=== PATIENT | female | born 1955 | race Caucasian/White ===

== ENCOUNTER 2019-12-10 08:18 | Outpatient (CLI) | payer MEDICARE, SELFPAY ==
--- NOTE | ~2019-12-10 | XR_ITS ---
EXAMINATION:XR_[id number]_CR DATE: 12/10/2019 08:45 INDICATION: Left-sided neck pain TECHNIQUE: AP, lateral, and odontoid views of the cervical spine are provided. COMPARISON: None FINDINGS: There is reversal of the normal cervical lordosis. There are 2 mm of retrolisthesis of C5 o n C6 and 2 mm of anterolisthesis of C7 on T1. The odontoid is intact. No fracture is identified. The vertebral body heights are normal. There is moderate loss of intervertebral disc space height at C5-6 and C6-7. There is moderate facet and uncovertebral joint osteoarthritis throughout the cervical spi ne. Small degenerative osteophytes project from the anterior endplates of multiple vertebral bodies. Prevertebral soft tissues are normal. IMPRESSION: 1. Moderate cervical spondylosis without acute findings. Reviewed, dictated and finalized at location A. OMER ACCOUNT TECHNICIAN
== END 2019-12-10 08:19 | disposition home or self-care (01) ==
PROVIDERS: PCP Internal Medicine; Visit Provider Internal Medicine
DX: M54.2 Cervicalgia (principal)
CPT/HCPCS: 72040

== ENCOUNTER 2019-12-18 08:21 | Outpatient (CLI) | payer MEDICARE, SELFPAY ==
--- NOTE | ~2019-12-18 | US_ITS ---
EXAMINATION: US right upper quadrant DATE: 12/18/2019 08:49 INDICATION: Abnormal liver function tests. TECHNIQUE: Multiple grayscale and Doppler ultrasound images of the abdomen were obtained. COMPARISON: None FINDINGS: The visualized portions of the head and body of the pancreas are normal. The liver demonstr ates diffuse steatosis. No liver surface nodularity. The gallbladder is normal in size. No gallstones or gallbladder wall thickening. There was no sonographic Martinez sign. The common duct is normal and measures 3 mm. There is a 3.2 cm cyst in right kidney. IMPRESSION: 1. Diffuse hepatic steatosis. Reviewed, dictated and finalized at location A. TER CUT OFF OPERATOR
== END 2019-12-18 08:22 | disposition home or self-care (01) ==
PROVIDERS: PCP Internal Medicine; Visit Provider Internal Medicine
DX: R94.5 Abnormal results of liver function studies (principal)
CPT/HCPCS: 76705

== ENCOUNTER 2021-12-19 08:25 | Outpatient (CLI) | payer MEDICARE, OTHER, SELFPAY ==
--- NOTE | ~2021-12-19 | MR_ITS ---
EXAMINATION: MR brain/brain stem wo con EXAM DATE: 12/19/2021 09:16 INDICATION: Cognitive impairment. TECHNIQUE: Magnetic resonance imaging (MRI) of the brain/brain stem obtained without contrast. Sagitt al T1, axial diffusion, gradient echo (T2*), T1, T2, FLAIR sequences obtained. There is no prior st udy for comparison. FINDINGS: Small left maxillary sinus mucous retention cysts or polyps. There are no areas of restrict ed diffusion to suggest acute infarction. There is no acute hemorrhage seen on the T2*, a hemosideri n sensitive sequence. No intraparenchymal brain mass. The ventricles are normal in size. There are no extra-axial collections. Flow voids are seen in the cerebral arteries on the T2-weighted sequence s consistent with their expected patency. The orbits are unremarkable. Soft tissue is unremarkable. IMPRESSION: Unremarkable brain MRI examination. Reviewed, dictated and finalized at location B. UCTION TEAM ADVISOR
== END 2021-12-19 08:26 | disposition home or self-care (01) ==
LOC: ANHIMG 08:35
PROVIDERS: PCP Internal Medicine; Visit Provider Internal Medicine
DX: G31.84 Mild cognitive impairment of uncertain or unknown etiology (principal)
CPT/HCPCS: 70551

== ENCOUNTER 2023-06-21 13:17 | Outpatient (CLI) | payer MEDICARE, OTHER, SELFPAY ==
--- NOTE | ~2023-06-21 | DEXA_ITS ---
Bone Density Report Name: BUDDY ZACARIAS Age: 68 Sex: Female Ethnicity: White Date of : 1955 Indication: postmenopausal; screening for osteoporosis; height loss; prior fracture; hysterectomy; Referring Provider: Benedicto Mathew Study: Bone densitometry was performed. Exam Date: June 21, 2023 Accession number: [id number] Bone Density: Region BMD T-score Z-score Classification AP Spine(L1, L2, L3) 1.270 2.3 4.3 Normal Femoral Neck (Left) 0.793 -0.5 1.2 Normal Total Hip (Left) 1.093 1.2 2.7 Normal Femoral Neck (Right) 0.735 -1.0 0.7 Normal Total Hip (Right) 0.983 0.3 1.8 Normal Femoral Neck Mean 0.764 -0.8 1.0 Normal Total Hip Mean 1.038 0.8 2.2 Normal World Health Organization criteria for BMD impression classify patients as: Normal (T-score at or above -1.0), Osteopenia (T-score between -1.0 and -2.5), or Osteoporosis (T-score at or below -2.5). 10-year Fracture Risk: FRAX not reported because: All T-scores for Spine Total, Hip Total, Femoral Neck at or above -1.0 Prior hip or vertebral fracture Clinical Information Provided by Patient: Have had a previous hip or vertebral fracture Has had a low trauma fracture Has the following medical conditions: Hysterectomy Patient maximum height was 64 Menopause Age: 27 No regular weight bearing exercise Does not regularly consume dairy products Drinks caffeinated beverages Onset of menses at age 12 Number of children 2 Impression: The patient has normal bone mass. The patient has risk factors, including: previous fracture. Discussion: INCREASED RISK OF FRACTURE DUE TO HISTORY OF FRACTURE. The patient's previous fracture puts the patient at high risk of a future fracture. In untreated patients, the risk of osteoporotic fracture increases approximately two-fold for each 1.0 SD decrease in T-score. Low bone density is not the only risk factor for fracture; also consider factors such as patient's age, frailty or poor health, risk of falling, risk of injury, previous osteoporotic fracture, family history of osteoporosis, cigarette smoking, low body weight, etc. Not everyone with a low trauma fracture has osteoporosis; osteomalacia and other metabolic bone disorders should also be considered. Patients who have osteoporosis should be evaluated for specific diseases and conditions (secondary causes) that may cause or contribute to bone loss and fracture risk. National Osteoporosis Foundation (NOF) recommends pharmacologic intervention for patients with a prior hip or vertebral fracture regardless of BMD T-score. The patient should follow a healthful lifestyle (good nutrition with adequate calcium and vitamin D, and appropriate weight-bearing exercise). Follow-Up: Consider a repeat BMD and Vertebral Fracture Assessment (VFA) exam in 2 years or sooner if medically necessary, to reassess this patient's status. Report
== END 2023-06-21 13:18 | disposition home or self-care (01) ==
LOC: CHSIMG 13:19
PROVIDERS: PCP Internal Medicine; Visit Provider Internal Medicine
DX: Z78.0 Asymptomatic menopausal state (principal)
CPT/HCPCS: 77080

== ENCOUNTER 2024-02-11 11:08 | Outpatient (CLI) | payer MEDICARE, OTHER, SELFPAY ==
--- NOTE | ~2024-02-11 | XR_ITS ---
XR hip BI wo pelvis 02/11/2024 11:38 Indication: Hip pain Procedure: 2 views each hip Comparison: No prior studies for comparison. Findings: There is mild bilateral symmetric osteoarthritis of the hips. No fracture, subluxation or d islocation. No soft tissue abnormality. No foreign bodies. Impression: 1: Mild bilateral osteoarthritis of the hips. Reviewed, dictated and finalized at location B. Impression: 1: Mild bilateral osteoarthritis of the hips.
--- NOTE | ~2024-02-11 | XR_ITS ---
XR lumbar spine 2-3V 02/11/2024 11:38 Indication: Low back pain. Procedure: 3 views lumbar spine Comparison: No prior studies for comparison. Findings: There is disc narrowing at all lumbar levels. There are prosthetic disc devices at L5-S1. T here is moderate facet hypertrophy at L3-4 through L5-S1. No fracture, subluxation or spondylolisthes is. There is mild dextroscoliosis. Impression: 1: Severe lumbar spondylosis. Reviewed, dictated and finalized at location B. Impression: 1: Severe lumbar spondylosis.
== END 2024-02-11 11:09 | disposition home or self-care (01) ==
LOC: CHSIMG 11:11
PROVIDERS: PCP Internal Medicine; Visit Provider Internal Medicine
DX: M25.551 Pain in right hip (principal); M16.0 Bilateral primary osteoarthritis of hip; M43.06 Spondylolysis, lumbar region
CPT/HCPCS: 72100; 73521

== ENCOUNTER 2024-02-18 13:29 | Outpatient (RCR) | payer MEDICARE, OTHER, SELFPAY ==
--- NOTE | 2024-02-18 13:43 | OPREHPOC ---
Outpatient Therapy Plan of Care This is a Multidisciplinary Plan of Care that may contain components documented by all disciplines (PT, OT, and ST.)
--- NOTE | 2024-02-18 14:46 | OPREHPOC ---
Outpatient Therapy Plan of Care This is a Multidisciplinary Plan of Care that may contain components documented by all disciplines (PT, OT, and ST.) PT Problem 1 PT Problem #1 Knowledge Deficit PT Goal 1 Goal patient to demonstrate independence with HEP Target Visit 5 PT Problem 2 PT Problem #2 Pain PT Goal 1 Goal 1. Patient to report highest pain at 2/10 2. patient to report ability to roll in bed with no increase in R low back pain Target Visit 10 PT Problem 3 PT Problem #3 Impaired Strength PT Goal 1 Goal 1. Patient to demonstrate 5/5 B LE strength to improve ability to stand for house hold tasks 2. Patient to demonstrate 4/5 core strength to improve ability to roll in bed without pain Target Visit 10 PT Problem 4 PT Problem #4 Impaired Functional Mobil PT Goal 1 Goal 1. patient to be able to ambulate >30 minutes to return to walking with her 2. patient to score 10% disability on Back Index Target Visit 10
--- NOTE | 2024-02-18 14:47 | PTOPEVAL1 ---
Assessment and note entered by Anastasia Salmeron DPT Evaluation Information Assessment Status Evaluation Diagnosis R sided low back pain, R hip pain Onset 02/13/24 Subjective Information patient reports R sided low back and posterior hip pain. she reports pain originally was going all the way down to the R foot but is now primarily in the back of the thigh to the knee. she reports at times she feels like her R leg is going to give out. she reports pain is worse with walking and standing as well as standing back up after bending over. she reports she bowls as well and pain is present at times with bowling. she reports occasionally when she rolls over in bed pain will occur. patient is semi-retired. Reported Pain Level Pain Score 4: Self Report Assessment PT Clinical Summary Mrs. Felipe is a 68 year old female who presents to PT with R sided low back pain with radiating pain to the R hip. Patient demonstrates decreased R hip>L hip strength, decreased LE flexibility and R anterior innominate rotation impairing her ability to go for walks with her , stand to complete house hold tasks and difficulty with rolling in bed. She would benefit from skilled PT to address impairments and return to PLOF. Plan of Care Interventions Electrical Stimulation,Gait Training,Hot Pack/Cold Pack,Manual Therapy,Mechanical Traction,Neuro Re- education,Patient/Caregiver Educati,Therapeutic Activities,Therapeutic Exercise PT Services Indicated Yes Treatment Frequency and 2x weekly for 10 visits Duration These treatments will address the objective and functional deficits as defined above. The patient will be advanced safely and appropriately in order for the patient to progress towards his/her prior level of function. Additional exercises will be introduced and as well as a comprehensive home exercise program upon discharge, if needed, ?to ensure carryover of functional gains achieved in the clinic. This treatment plan has been reviewed and agreement upon by the patient.
--- NOTE | 2024-03-21 10:01 | OPREHPOC ---
Outpatient Therapy Plan of Care This is a Multidisciplinary Plan of Care that may contain components documented by all disciplines (PT, OT, and ST.) PT Problem 1 PT Problem #1 Knowledge Deficit PT Goal 1 Goal patient to demonstrate independence with HEP Target Visit 5 Progress Met Comment continue to progress PT Problem 2 PT Problem #2 Pain PT Goal 1 Goal 1. Patient to report highest pain at 2/10 2. patient to report ability to roll in bed with no increase in R low back pain Target Visit 16 Progress Not Met PT Problem 3 PT Problem #3 Impaired Strength PT Goal 1 Goal 1. Patient to demonstrate 5/5 B LE strength to improve ability to stand for house hold tasks 2. Patient to demonstrate 4/5 core strength to improve ability to roll in bed without pain Target Visit 16 Progress Partially Met Comment continue PT Problem 4 PT Problem #4 Impaired Functional Mobil PT Goal 1 Goal 1. patient to be able to ambulate >30 minutes to return to walking with her 2. patient to score 10% disability on Back Index Target Visit 16 Progress Not Met Comment continue
--- NOTE | 2024-03-21 10:01 | PTOPPROG ---
Assessment and note entered by Kaylie Lema, PT Evaluation Information Assessment Status Progress Diagnosis R sided low back pain, R hip pain Onset 02/13/24 Subjective Information Corina reports that her back pain is about the same. She notes increased pain with standing up from a chair, bending over, and walking. She notes the pain is in the both hips and lower back. She has no pain in sitting but as soon as she stands she feels it. She also gets occasional nerve pain down the sides of her thigh that stops at the knee . She notes this occurs with the first couple steps she takes after standing. Assessment PT Clinical Summary Corina Felipe has completed 10 skilled PT visits for right low back and hip pain. She is reporting no overall change in pain and reports ongoing difficulty with standing up from sitting, walking, and lifting. She objectively demonstrates improved lumbar AROM and core strength. She is demonstrating radiation of symptoms to the left side with repeated extension and centralization of symptoms with repeated flexion. She will benefit from skilled PT for flexion based ROM, flexibility , and core strengthening to relieve pain and allow the patient to return to walking prior to her upcoming vacation. Plan of Care Interventions Electrical Stimulation,Hot Pack/Cold Pack,Manual Therapy,Neuro Re-education,Patient/Caregiver Educati,Therapeutic Activities,Therapeutic Exercise PT Services Indicated Yes Treatment Frequency and 2 times a week for 6 visits Duration These treatments will address the objective and functional deficits as defined above. The patient will be advanced safely and appropriately in order for the patient to progress towards his/her prior level of function. Additional exercises will be introduced and as well as a comprehensive home exercise program upon discharge, if needed, ?to ensure carryover of functional gains achieved in the clinic. This treatment plan has been reviewed and agreement upon by the patient.
--- NOTE | 2024-04-10 12:42 | OPREHPOC ---
Outpatient Therapy Plan of Care This is a Multidisciplinary Plan of Care that may contain components documented by all disciplines (PT, OT, and ST.) PT Problem 1 PT Problem #1 Knowledge Deficit PT Goal 1 Goal patient to demonstrate independence with HEP Target Visit 5 Progress Met PT Problem 2 PT Problem #2 Pain PT Goal 1 Goal 1. Patient to report highest pain at 2/10 -met for back 2. patient to report ability to roll in bed with no increase in R low back pain -met Target Visit 16 Progress Partially Met PT Problem 3 PT Problem #3 Impaired Strength PT Goal 1 Goal 1. Patient to demonstrate 5/5 B LE strength to improve ability to stand for house hold tasks 2. Patient to demonstrate 4/5 core strength to improve ability to roll in bed without pain Target Visit 16 Progress Met PT Problem 4 PT Problem #4 Impaired Functional Mobil PT Goal 1 Goal 1. patient to be able to ambulate >30 minutes to return to walking with her -progress towards 2. patient to score 10% disability on Back Index -not met Target Visit 16 Progress Not Met
--- NOTE | 2024-04-10 12:42 | PTOPDC ---
Assessment and note entered by Kaylie Lema, PT Evaluation Information Assessment Status Discharge Diagnosis R low back pain, R hip pain Onset 02/13/24 Subjective Information Corina Felipe reports her right hip pain has mostly resolved and now she notes left hip pain. She has been able to return to walking for exercise but is only able to walk about 1/4 a mile compared to the 2 miles she used to walk. She notes left groin pain when she tries walking. She is also limited with standing to less than an hour. She does feel she has improved enough that she can continue with home exercises to get where she needs to be. Reported Pain Level Pain Score 0,0: Self Report Assessment PT Clinical Summary Corina Felipe has completed 16 skilled PT visits for right low back and hip pain. She is reporting overall improvements with times of 0/10 pain. She has been able to walking up to 1/4 mile before pain makes her rest. She does still feel limited with walking and prolonged standing but feels she can continue to work on exercises independently. She objectively demonstrates improved lumbar AROM, improved core and hip strength, improved flexibility, and improved endurance. She will be discharged to an independent home exercise program . Plan of Care PT Services Indicated Yes
== END 2024-04-10 13:18 | disposition home or self-care (01) ==
LOC: CHSPT 13:29
PROVIDERS: PCP Internal Medicine; Visit Provider Internal Medicine
DX: M54.16 Radiculopathy, lumbar region (principal)
CPT/HCPCS: 97014; 97110; 97140; 97150; 97161; 97750; G0283